=== PATIENT | male | born 1980 | race Caucasian/White ===

== ENCOUNTER 2018-07-20 01:14 | Emergency (ER) | payer MEDICAID ==
[~2018-07-20] VITALS: Ht 182.9 cm; Wt 102.1 kg
[~2018-07-20 01:14] MED LIST: ALPRAZOLAM2 M1; AMOXICILLI250 MG/51 PO; AMOXICILLIN 50500 MG PO; BACTRIM DS TAB1 EACH PO; BENTYL 20 MG TA20 M1 PO; CLEOCIN HCL150 MG PO; CLEOCIN HCL300 MG PO; CLONAZEPAM; CLONAZEPAM 1 MG1 M1 PO; DOXYCYCLINE 10100 MG PO; ERYTHROMYCIN500 MG PO; FLEXERIL PO; GAS RELIEF80 MG PO; HYDROCODON-ACE1 EAC7 PO; HYDROCODON-ACE1 EACH PO; HYDROCODONE-AP1 EAC6 PO; LIDOCAINE VISC100 M1 MM; LIPITOR10 MG PO; MEDROLDOSEPACK PO; NAPROSYN500 MG PO; NORCO 5-325 TA1 EACH PO; NORFLEX100 MG PO; ONDANSETRON HCL4 M2 PO; PAXIL40 MG; PREDNISONE 10 M10 M1 PO; PREDNISONE 20 M20 M1 PO; PRILOSEC 20 MG20 MG PO; PROAIR HFA8.5 GM INH; PROAIR HFA8.5 GM PO; PROMETHAZINE D480 ML PO; PROMS25 WY RECTAL; RANITIDINE 150150 MG PO; SEROQUEL 50 MG50 M1 NG; TESSALON PERLE100 MG PO; TRAMADOL 50 MG50 MG PO; VICODIN 5-5001 EACH PO; XANAX1 MG PO; ZOFRAN4 MG PO; ZPAK PO
[2018-07-20] MEDS ORDERED: DOXYCYCLINE 10100 MG PO (02:32)
[2018-07-20 02:47] VITALS: BP 110/70
== END 2018-07-20 02:50 | disposition home or self-care (01) ==
LOC: M.ERS 01:14
DX: L73.2 Hidradenitis suppurativa (principal); L02.214 Cutaneous abscess of groin; E78.5 Hyperlipidemia, unspecified; K21.9 Gastro-esophageal reflux disease without esophagitis; Z87.891 Personal history of nicotine dependence; Z88.0 Allergy status to penicillin; Z88.2 Allergy status to sulfonamides; Z88.5 Allergy status to narcotic agent; Z88.8 Allergy status to other drugs, medicaments and biological substances

== ENCOUNTER 2018-10-10 20:45 | Emergency (ER) | payer MEDICAID ==
[~2018-10-10] VITALS: Ht 182.9 cm; Wt 104.3 kg
[2018-10-10] MEDS ORDERED: ATORVASTATIN CA40 MG (20:57)
[2018-10-10 22:03] LABS: ABSOLUTE BASOPHILS 0.1 thou/uL (0.0-0.2); ABSOLUTE EOSINOPHILS 0.1 thou/uL (0.0-0.7); ABSOLUTE LYMPHOCYTES 2.9 thou/uL (0.8-5.3); ABSOLUTE MONOCYTES 0.6 thou/uL (0.0-1.2); ABSOLUTE NEUTROPHILS 6.8 thou/uL (1.6-8.1); BASOPHILS 0.8 %; EOSINOPHILS 0.9 %; HEMATOCRIT 47.2 % (42.0-52.0); HEMOGLOBIN 16.4 gm/dL (14.0-18.0); LYMPHOCYTES 27.2 %; MCH 31.1 pg (26.0-34.0); MCHC 34.7 g/dL (28.0-37.0); MCV 89.8 fL (80.0-100.0); MONOCYTES 6.1 %; MPV 7.7 fl. (7.2-11.1); NUCLEATED RBCS 0 /100WBC; PLATELET COUNT* 215 thou/uL (150-400); RBC 5.26 mil/uL (4.50-6.00); RDW-CV 12.7 % (10.5-14.5); WBC 10.5 thou/uL (4.0-11.0)
[2018-10-10 22:07] LABS: CALCIUM 9.3 mg/dL (8.5-10.1); CREATININE 1.1 mg/dL (0.6-1.3); POTASSIUM 4.3 mmol/L (3.5-5.1)
[2018-10-10 22:12] LABS: TOTAL BILIRUBIN 0.3 mg/dL (<0.1-1.0); TOTAL PROTEIN 7.6 g/dL (6.4-8.2)
[2018-10-11 00:05] VITALS: BP 118/75
== END 2018-10-11 00:05 | disposition home or self-care (01) ==
LOC: M.ERS 20:45
PROVIDERS: Physician Assistant
DX: R13.10 Dysphagia, unspecified (principal); E78.5 Hyperlipidemia, unspecified; K21.9 Gastro-esophageal reflux disease without esophagitis; Z87.891 Personal history of nicotine dependence; Z88.0 Allergy status to penicillin; Z88.2 Allergy status to sulfonamides; Z88.5 Allergy status to narcotic agent; Z88.8 Allergy status to other drugs, medicaments and biological substances

== ENCOUNTER 2020-05-05 06:15 | Emergency (ER) | payer MEDICAID ==
[~2020-05-05] VITALS: Ht 185.4 cm; Wt 104.3 kg
[~2020-05-05 06:15] MED LIST changes: +ATORVASTATIN CA40 MG
[2020-05-05] MEDS ORDERED: ADDERALL 10 MG10 MG PO (06:24)
[2020-05-05] MEDS ORDERED: XANAX1 MG PO (06:25)
[2020-05-05 07:01] LABS: ABSOLUTE BASOPHILS 0.1 thou/uL (0.0-0.2); ABSOLUTE EOSINOPHILS 0.2 thou/uL (0.0-0.7); ABSOLUTE LYMPHOCYTES 4.7 thou/uL (0.8-5.3); ABSOLUTE MONOCYTES 0.8 thou/uL (0.0-1.2); ABSOLUTE NEUTROPHILS 4.5 thou/uL (1.6-8.1); BASOPHILS 0.8 %; EOSINOPHILS 1.9 %; HEMATOCRIT 48.6 % (42.0-52.0); HEMOGLOBIN 16.9 gm/dL (14.0-18.0); LYMPHOCYTES 45.9 %; MCH 31.9 pg (26.0-34.0); MCHC 34.7 g/dL (28.0-37.0); MCV 91.9 fL (80.0-100.0); MONOCYTES 7.7 %; MPV 7.2 fl. (7.2-11.1); NUCLEATED RBCS 0 /100WBC; PLATELET COUNT* 245 thou/uL (150-400); POLYS 43.7 %; RBC 5.29 mil/uL (4.50-6.00); RDW-CV 13.2 % (10.5-14.5); WBC 10.3 thou/uL (4.0-11.0)
[2020-05-05 07:11] LABS: CALCIUM 8.6 mg/dL (8.5-10.1); CREATININE 0.8 mg/dL (0.6-1.3); POTASSIUM 3.6 mmol/L (3.5-5.1)
[2020-05-05 07:15] LABS: MAGNESIUM 2.2 mg/dL (1.8-2.4); TOTAL BILIRUBIN 0.5 mg/dL (<0.1-1.0)
[2020-05-05 07:16] LABS: APTT 27.5 Seconds (25.0-31.3); PROTIME 10.9 Seconds (9.20-11.50)
[2020-05-05] MEDS ORDERED: NORCO 5-325 TA1 EAC2 PO (07:41)
[2020-05-05] MEDS ORDERED: FLEXERIL PO (07:41)
[2020-05-05 07:56] VITALS: BP 126/74
--- NOTE | 2020-05-05 14:08 | EKG ---
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1980 Requested By: Fide Stephens Order Number: [id number] MD: Matthew Pillai Measurements Intervals [place] Rate: 92 P: 35 GA: 151 QRS: -21 QRSD: 115 T: 32 QT: 350 QTc: 433 Interpretive Statements Sinus rhythm Nonspecific intraventricular conduction delay Low voltage, precordial leads Compared to ECG 12/30/2016 16:22:09 Intraventricular conduction delay now present Low QRS voltage now present Electronically Signed On 05-05-2020 14:08:20 [employer] by Matthew Pillai [email or web address] <ELECTRONICALLY SIGNED> By: Mario Pillai MD, [facility] 05/05/20 1408 0618 Mario Pillai MD, [facility] /EPI
== END 2020-05-05 07:57 | disposition home or self-care (01) ==
LOC: M.ERS 06:15
PROVIDERS: Personal Emergency Response Attendant
DX: M54.5 Low back pain (principal); R07.89 Other chest pain; E78.5 Hyperlipidemia, unspecified; K21.9 Gastro-esophageal reflux disease without esophagitis; Z85.01 Personal history of malignant neoplasm of esophagus; Z88.5 Allergy status to narcotic agent; Z88.0 Allergy status to penicillin; Z88.2 Allergy status to sulfonamides; Z88.6 Allergy status to analgesic agent; Z91.018 Allergy to other foods; Z87.891 Personal history of nicotine dependence

== ENCOUNTER 2020-11-28 07:46 | Emergency (ER) | payer MEDICAID ==
[~2020-11-28] VITALS: Ht 185.4 cm; Wt 108.9 kg
[~2020-11-28 07:46] MED LIST changes: +ADDERALL 10 MG10 MG PO; +NORCO 5-325 TA1 EAC2 PO
[2020-11-28] MEDS ORDERED: PROPRANOLOL 1010 M1 PO (07:55)
[2020-11-28] MEDS ORDERED: KLONOPIN1 MG (07:55)
[2020-11-28] MEDS ORDERED: PREVACID30 MG PO (07:56)
[2020-11-28] MEDS ORDERED: FAMOTIDINE 20 M20 MG PO (07:56)
[2020-11-28 08:33] LABS: ABSOLUTE BASOPHILS 0.1 thou/uL (0.0-0.2); ABSOLUTE EOSINOPHILS 0.2 thou/uL (0.0-0.7); ABSOLUTE LYMPHOCYTES 4.7 thou/uL (0.8-5.3); ABSOLUTE MONOCYTES 1.1 thou/uL (0.0-1.2); ABSOLUTE NEUTROPHILS 6.3 thou/uL (1.6-8.1); BASOPHILS 0.5 %; EOSINOPHILS 1.8 %; HEMATOCRIT 47.5 % (42.0-52.0); HEMOGLOBIN 16.6 gm/dL (14.0-18.0); MCH 31.5 pg (26.0-34.0); MCHC 35.1 g/dL (28.0-37.0); MCV 89.8 fL (80.0-100.0); MONOCYTES 8.7 %; MPV 7.8 fl. (7.2-11.1); NUCLEATED RBCS 0 /100WBC; PLATELET COUNT* 242 thou/uL (150-400); RBC 5.29 mil/uL (4.50-6.00); RDW-CV 12.9 % (10.5-14.5); WBC 12.3 thou/uL (4.0-11.0)
[2020-11-28 08:36] LABS: ANION GAP 6 mmol/L (7-16); BUN 10 mg/dL (7-18); CALCIUM 8.3 mg/dL (8.5-10.1); CHLORIDE 103 mmol/L (98-107); CO2 32 mmol/L (21-32); GLUCOSE 90 mg/dL (70-99); POTASSIUM 3.5 mmol/L (3.5-5.1); SODIUM 141 mmol/L (136-145)
[2020-11-28 09:02] LABS: ALBUMIN 3.7 g/dL (3.4-5.0); ALKALINE PHOSPHATASE 73 U/L (46-116); CK-MB MASS < 0.5 ng/mL (<0.5-3.6); LIPASE 333 U/L (73-393); MAGNESIUM 1.9 mg/dL (1.8-2.4); NT-PRO BRAIN NAT PEPTIDE 15 pg/mL (<300); SGOT 19 U/L (15-37); SGPT 45 U/L (30-65); TOTAL BILIRUBIN 0.7 mg/dL (<0.1-1.0); TOTAL PROTEIN 7.7 g/dL (6.4-8.2)
[2020-11-28] MEDS ORDERED: HYDROCODON-ACE1 EAC7 PO (09:30)
[2020-11-28 09:36] VITALS: BP 126/83
--- NOTE | 2020-11-28 15:22 | EKG ---
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
== END 2020-11-28 09:37 | disposition home or self-care (01) ==
LOC: M.ERS 07:46
PROVIDERS: Family Medicine
DX: R07.89 Other chest pain (principal); R10.13 Epigastric pain; E78.5 Hyperlipidemia, unspecified; K21.9 Gastro-esophageal reflux disease without esophagitis; Z88.0 Allergy status to penicillin; Z88.2 Allergy status to sulfonamides; Z88.5 Allergy status to narcotic agent; Z88.6 Allergy status to analgesic agent; Z91.018 Allergy to other foods; Z90.89 Acquired absence of other organs; Z85.01 Personal history of malignant neoplasm of esophagus

== ENCOUNTER 2021-05-15 13:26 | Emergency (ER) | payer MEDICAID ==
[~2021-05-15] VITALS: Ht 182.9 cm; Wt 104.3 kg
[~2021-05-15 13:26] MED LIST changes: +FAMOTIDINE 20 M20 MG PO; +KLONOPIN1 MG; +PREVACID30 MG PO; +PROPRANOLOL 1010 M1 PO
[2021-05-15] MEDS ORDERED: XANAX1 MG PO (13:37)
[2021-05-15] MEDS ORDERED: OMEPRAZOLE40 MG PO (13:38)
[2021-05-15 14:10] LABS: INFLUENZA A ANTIGEN Positive (Negative); INFLUENZA B ANTIGEN Negative (Negative)
[2021-05-15] MEDS ORDERED: TAMIFLU75 MG PO (14:32)
[2021-05-15] MEDS ORDERED: APAP W/CODEINE1 TA2 PO (14:32)
[2021-05-15] MEDS ORDERED: PROAIR HFA8.5 GM INH (14:33)
[2021-05-15] MEDS ORDERED: TESSALON PERLE100 MG PO (14:33)
[2021-05-15 14:44] VITALS: BP 114/70
--- NOTE | 2021-05-16 11:08 | EKG ---
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1980 Requested By: Teofilo Toure Order Number: [id number] MD: Mika Baldwin Measurements Intervals [place] Rate: 92 P: 39 [place]: 150 QRS: -23 QRSD: 95 T: 42 QT: 340 QTc: 421 Interpretive Statements Sinus rhythm Inferior infarct, old poor r wave progression Baseline wander in lead(s) V2 Compared to ECG 11/28/2020 07:51:13 no change Electronically Signed On 05-16-2021 11:07:41 GIZZARD PEELER by Mika Baldwin [email or web address] <ELECTRONICALLY SIGNED> By: Mika Baldwin MD, [facility] 05/16/21 1107 1331 1331 Mika Baldwin MD, [facility] /EPI
== END 2021-05-15 14:44 | disposition home or self-care (01) ==
LOC: M.ERS 13:26
PROVIDERS: Physician Assistant
DX: J10.1 Influenza due to other identified influenza virus with other respiratory manifestations (principal); Z20.822 Contact with and (suspected) exposure to COVID-19; M54.9 Dorsalgia, unspecified; E78.5 Hyperlipidemia, unspecified; K21.9 Gastro-esophageal reflux disease without esophagitis; F84.0 Autistic disorder; Z90.89 Acquired absence of other organs; Z98.890 Other specified postprocedural states; Z85.01 Personal history of malignant neoplasm of esophagus; Z79.899 Other long term (current) drug therapy; Z91.018 Allergy to other foods; Z88.5 Allergy status to narcotic agent; Z88.0 Allergy status to penicillin; Z88.2 Allergy status to sulfonamides; Z88.8 Allergy status to other drugs, medicaments and biological substances; Z87.891 Personal history of nicotine dependence